=== PATIENT | male | born 1940 | race Caucasian/White ===

== ENCOUNTER 2023-11-06 13:18 | Emergency (ER) | payer MEDICARE, SELFPAY ==
--- NOTE | ~2023-11-06 | XR_ITS ---
EXAMINATION: XR chest 2V DATE: 11/06/2023 14:00 INDICATION: Shortness of breath. Palpitations. TECHNIQUE: Frontal and lateral views of the chest were obtained. COMPARISON: None. FINDINGS: A calcified left lung nodule is consistent with old granulomatous disease. No pleural effus ion or pneumothorax. The heart size is normal. IMPRESSION: 1. No acute cardiopulmonary disease. Reviewed, dictated and finalized at location A.
[2023-11-06 13:35] VITALS: BP 142/71; PULSE 60; RESP 12; TEMP 36.6; O2SAT 99
--- NOTE | 2023-11-06 13:39 | ECG_ITS ---
SEE SCANNED COPY FOR CONFIRMED REPORT MTDD
[2023-11-06 13:53] LABS: Basophils Absolute Auto 0.1 K/mm3 (0.0-0.1); Basophils Percent Auto 0.8 % (0.2-1.2); Eosinophils Absolute Auto 0.2 K/mm3 (0-0.3); Eosinophils Percent Auto 2.7 % (0-4.4); Hematocrit 39.1 % (42.0-52.0); Hemoglobin 12.9 g/dL (14.0-18.0); Immature Granulocyte Absolute 0.01 K/mm3 (0.00-0.031); Immature Granulocyte Percent A 0.2 % (0-0.5); Lymphocytes Absolute Auto 1.33 K/mm3 (0.9-3.2); Lymphocytes Percent Auto 21.3 % (18.3-44.2); Mean Corpuscular Hemoglobin 31.8 pg (26-34); Mean Corpuscular Volume 96.3 fl (80-100); Mean Platelet Volume 10.4 fl (7.4-10.4); Monocytes Absolute Auto 0.5 K/mm3 (0.1-0.6); Monocytes Percent Auto 8.5 % (2.6-8.5); Neutrophils Absolute Auto 4.2 K/mm3 (1.3-6.7); Neutrophils Percent Auto 66.5 % (45.5-73.1); Platelet Count Result 203 k/mm3 (150-375); Red Blood Count 4.06 M/mm3 (4.6-6.20); Red Cell Distribution Width 12.8 % (11.5-14.5); White Blood Count 6.3 K/mm3 (4.5-10.0)
--- NOTE | 2023-11-06 13:59 | ED.ARRPALP ---
HPI - Arrhythmia/Palpitations General Chief Complaint: Arrhythmia/Palpitations Stated Complaint: Low BP and slow HR Time Seen by Provider: 11/06/23 13:40 History of Present Illness HPI narrative: Patient is an 83-year-old male with history of hypertension, here with esophagus, bradycardia here with lightheadedness, slow heart rate, low blood pressure. Patient states that he was previously on amlodipine and well as HCTZ/losartan. Patient notes that up until 2 months ago he was still an avid runner. 2 months ago he began having episodes of light headedness, the first of which occurred while driving. he notes that his blood pressure has always been well controlled on his antihypertensives however over the last 2 months he has had lower blood pressure than normal with the lowest reading over the last couple of months being 92/42. He also notes that he has had occasional slower heart rates. He typically runs in the 50s and has had a heart rate in the 50s for many years. Over last couple of months he has noted some readings in the 30s and had 2 of these episodes this morning. He has stopped his amlodipine over the last 2 months due to these lower blood pressures but continues to take his hydrochlorothiazide/losartan. he previously followed with a director of labor relations when he lived in [place] prior to moving here, has been unable to establish with any physician since moving to this area 8 months ago. He notes that his last stress test was probably 2-3 years ago, was due for 1 prior to moving to [place]. He has had some exertional shortness of breath over the last couple of months as well as some midsternal burning similar to his prior Nixon's esophagus. This is not currently present. No cough, congestion, fever, chills. Related Data Allergies Allergy/AdvReac Type Severity Reaction Status Date / Time No Known Allergies Allergy Verified 11/06/23 13:40 Review of Systems Review of Systems: All systems reviewed & are unremarkable except as noted in HPI and below Exam Narrative: GENERAL: Well-appearing, well-nourished, and in no acute distress. HEAD: Normocephalic, atraumatic. EYES: PERRLA and EOMI. ENT: Nares clear. Mucous membranes moist. NECK: Supple. CHEST: Clear to auscultation. No respiratory distress. HEART: Regular rate and rhythm. Normal peripheral pulses. ABDOMEN: Soft, nontender, nondistended. EXTREMITIES: Normal range of motion. No edema. SKIN: Warm, dry, no rash. NEURO: No focal deficits. Alert and oriented x3. PSYCH: Normal mood and affect. Course Course Emergency Course: Chart review performed. Patient here with lightheadedness and palpitations for 2 months intermittently, constant for 1 week. Some SOB on exertion. Triage vitals normal. Patient seen evaluated, nontoxic appearing. He is currently complaining of mild lightheadedness, otherwise no current symptoms. Will do cardiac workup, workup for possible CHF, EKG shows bradycardia with occasional PVC. Patient states he has a known history of PVCs. Patient agreeable to workup and plan. Lab work reviewed. CBC unremarkable, hgb stable without concern for anemia causing symptoms. CMP shows potassium of 3.7, creatinine of 1.1, no baseline for comparison. Magnesium low at 1.5. Will optimize potassium and magnesium. Initial troponin negative. Repeat troponin normal. Patient reevaluated, feeling well. Discussed hospitalization versus outpatient follow-up with information given for both the on-call primary care doctor and cardiology office. Patient would prefer outpatient follow-up with primary care and Cardiology. Strict return precautions discussed. Patient to hold his blood pressure medications for the time being given low blood pressure readings at home and to keep a running list of his blood pressures to provide for his follow up appointments. The results of pertinent diagnostic studies and exam findings were discussed. The patient?s provisional diagnosis and plan of
[2023-11-06 14:03] LABS: Alanine Aminotransferase 19 U/L (6-50); Albumin Level 4.2 g/dL (3.5-5.1); Alkaline Phosphatase 48 U/L (38-126); Anion Gap 6 mmol/L (4-12); Aspartate Amino Transferase 28 U/L (17-59); Bilirubin,Total 0.6 mg/dL (0.2-1.3); Blood Urea Nitrogen 29 mg/dL (9-20); Calcium 10.1 mg/dL (8.4-10.2); Carbon Dioxide 26 mmol/L (22-30); Chloride 105 mmol/L (98-107); Estimated CRCL calculation 47 ml/min; Estimated Glomerular Filt Rate > 60; Glucose 119 mg/dL (65-110); Lipase 89 U/L (23-300); Magnesium 1.5 mg/dL (1.6-2.3); Potassium 3.7 mmol/L (3.4-5.0); Sodium 137 mmol/L (137-145)
[2023-11-06 14:15] LABS: Troponin I < 0.012 ng/mL (0.000-0.034)
[2023-11-06 14:30] VITALS: PULSE 60
[2023-11-06 14:41] LABS: Partial Thromboplastin Time 26.1 Seconds (22.3-36.8); Prothrombin Time 13.4 Seconds (11.1-14.7)
[2023-11-06 14:47] LABS: NT Pro B Type Natriuretic Pept 396 pg/mL (19.9-100)
[2023-11-06 14:55] LABS: D Dimer 0.28 ug/mL (<0.48)
[2023-11-06 15:14] VITALS: BP 128/71; PULSE 60; RESP 16; O2SAT 98
[2023-11-06] MEDS: MAGNESIUM SULF 2 GM/WATER 50ML 2 GM/50 ML BAG IVPB (15:16)
[2023-11-06] MEDS: POTASSIUM BICARBONATE 25 MEQ TABEF 50 MEQ PO (15:17)
--- NOTE | 2023-11-06 16:21 | ECG_ITS ---
SEE SCANNED COPY FOR CONFIRMED REPORT MTDD
--- NOTE | 2023-11-06 16:35 | ECG_ITS ---
SEE SCANNED COPY FOR CONFIRMED REPORT MTDD
[2023-11-06 17:08] LABS: Troponin I < 0.012 ng/mL (0.000-0.034)
[2023-11-06 18:02] VITALS: BP 136/51; PULSE 52; RESP 14; O2SAT 99
== END 2023-11-06 18:04 | disposition home or self-care (01) ==
PROVIDERS: Emergency Medicine; Emergency Provider Student in an Organized Health Care Education/Training Program; PCP Family Medicine
DX: R00.2 Palpitations (principal); R06.02 Shortness of breath; I10 Essential (primary) hypertension; R00.1 Bradycardia, unspecified; I44.0 Atrioventricular block, first degree
CPT/HCPCS: 36415; 71046; 80053; 83690; 83735; 83880; 84484; 85025; 85380; 85610; 85730; 93005; 96365; 96366; 99284; A9270; J3475

== ENCOUNTER 2023-11-29 11:10 | Outpatient (CLI) | payer MEDICARE, SELFPAY ==
[2023-11-29 07:59] LABS: Hematocrit 43.2 % (42.0-52.0); Hemoglobin 14.1 g/dL (14.0-18.0); Mean Corpuscular HGB Conc 32.6 g/dl (32-36); Mean Corpuscular Hemoglobin 31.7 pg (26-34); Mean Corpuscular Volume 97.1 fl (80-100); Mean Platelet Volume 10.8 fl (7.4-10.4); Platelet Count Result 247 k/mm3 (150-375); Red Blood Count 4.45 M/mm3 (4.6-6.20); Red Cell Distribution Width 12.7 % (11.5-14.5); White Blood Count 4.9 K/mm3 (4.5-10.0)
[2023-11-29 08:44] LABS: Alanine Aminotransferase 17 U/L (6-50); Albumin Level 4.3 g/dL (3.5-5.1); Alkaline Phosphatase 48 U/L (38-126); Anion Gap 5 mmol/L (4-12); Aspartate Amino Transferase 27 U/L (17-59); Bilirubin,Total 0.9 mg/dL (0.2-1.3); Blood Urea Nitrogen 23 mg/dL (9-20); Carbon Dioxide 31 mmol/L (22-30); Chloride 103 mmol/L (98-107); Cholesterol 148 mg/dL (0-200); Estimated Glomerular Filt Rate > 60; Glucose 102 mg/dL (65-110); HDL Direct 54 mg/dL; Magnesium 1.9 mg/dL (1.6-2.3); Potassium 3.8 mmol/L (3.4-5.0); Sodium 139 mmol/L (137-145); Triglycerides 72 mg/dL (<150)
[2023-11-29 08:56] LABS: LDL Cholesterol Direct 77 mg/dL
[2023-11-29 09:15] LABS: Prostate Specific Antigen < 0.1 ng/mL (< OR = 4.0)
== END 2023-11-29 11:11 | disposition home or self-care (01) ==
PROVIDERS: PCP Family Medicine; Visit Provider Family Medicine
DX: E83.42 Hypomagnesemia (principal); C61 Malignant neoplasm of prostate; I10 Essential (primary) hypertension; E78.2 Mixed hyperlipidemia; Z13.220 Encounter for screening for lipoid disorders
CPT/HCPCS: 36415; 80048; 80061; 80076; 83735; 84153; 84443; 85027

== ENCOUNTER 2023-12-10 11:33 | Day surgery (SDC) | payer MEDICARE, SELFPAY ==
[2023-11-29 09:27] VITALS: BMI 21.9
[2023-12-10 12:43] VITALS: BP 133/69; PULSE 55; RESP 18; TEMP 36.7; O2SAT 99; BMI 21.9
--- NOTE | 2023-12-10 12:50 | PM.HPGS ---
History of Present Illness History of Present Illness Consent: Risks, benefits, and alternatives have been discussed and questions answered. Patient agrees to proceed with procedure. 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 Review of Systems Review of Systems: All systems reviewed & are unremarkable except as noted in HPI and below PMFSH Past Medical History Medical History Nixon esophagus Bradycardia Essential hypertension Hypomagnesemia Mixed hyperlipidemia Surgical History Surgical History Prostate cancer Family History Family History Sibling Diabetes mellitus Hypertension Social History Social History Smoking status: Never smoker Alcohol intake: current Alcohol use details: 3 per month Substance use: never Substance use type: does not use Do You Feel Safe in your Home?: Yes Lack of Transportation: No Lack of Food: Never True Current Housing: I Have Housing Concerned About Future Housing: No Difficulty Paying Gas/Electric Bills: No Difficulty Paying for Meds: No Currently Unemployed: No Difficulty w/ Childcare or Family Care: No Meds Home Medications and Allergies Home Medications Medication Instructions Recorded Confirmed Type candesartan 32 1 tablet PO DAILY 11/26/23 12/10/23 History mg-hydrochlorothiazide 12.5 mg tablet omeprazole 20 mg capsule,delayed 20 mg PO DAILY 11/26/23 12/10/23 History release rosuvastatin 10 mg tablet (Crestor) 10 mg PO DAILY 11/26/23 12/10/23 History Magnesium Complex 1 tab-cap PO DIRECTED 12/03/23 12/10/23 History amlodipine 5 mg tablet 5 mg PO DAILY 12/03/23 12/10/23 History coenzyme Q10 1 tab-cap PO DIRECTED 12/03/23 12/10/23 History multivitamin 1 tablet PO DAILY 12/03/23 12/10/23 History Allergies Allergy/AdvReac Type Severity Reaction Status Date / Time No Known Allergies Allergy Verified 12/10/23 12:37 Vital Signs Vital Signs - 24 hr 12/10/23 12:43 Temperature 36.7 C Pulse Rate 55 L Respiratory Rate 18 Blood Pressure 133/69 Pulse Oximetry 99 Oxygen Delivery Room Air Exam Const: General: alert Orientation/consciousness: patient oriented x3 Resp: Auscultation: clear to auscultation bilaterally Cardio: Rhythm: regular rhythm GI: GI Palp: Yes Soft to palpation and No Tenderness to palpation present (GI) Neuro: General: patient oriented x3 Assessment and Plan Assessment and plan (1) Nixon esophagus: Qualifiers: Nixon's esophagus type: without dysplasia Qualified Code(s): K22.70 - Nixon's esophagus without dysplasia Code(s): K22.70 - Nixon's esophagus without dysplasia Status: Acute Assessment and Plan: EGD with possible biopsy or dilatation or cautery.
[2023-12-10] MEDS: LACTATED RINGERS 1,000 ML 150 ML IV CONT (12:55)
--- NOTE | 2023-12-10 13:04 | WPDANESEPPF ---
Anes - Initial Pre Proc Eval Procedure: Operation Date: 12/10/23 13:30 Proposed Procedures p Esophagogastroduodenoscopy - Donis Alva MD Date/Time: 12/10/23 13:04 Surgeon: Donis Alva MD Pre Op Diagnosis: Nixon's Esophagus without Dysplasia Patient Data Age: 83 Gender: M Height: 1.78 m Weight: 69.35 kg Last Vital Signs Temp 36.7 C 12/10/23 12:43 Pulse 55 L 12/10/23 12:43 Resp 18 12/10/23 12:43 BP 133/69 12/10/23 12:43 Pulse Ox 99 12/10/23 12:43 O2 Del Method Room Air 12/10/23 12:43 Allergies Allergy/AdvReac Type Severity Reaction Status Date / Time No Known Allergies Allergy Verified 12/10/23 12:37 Home Medications Medication Instructions Recorded Confirmed Type candesartan 32 1 tablet PO DAILY 11/26/23 12/10/23 History mg-hydrochlorothiazide 12.5 mg tablet omeprazole 20 mg capsule,delayed 20 mg PO DAILY 11/26/23 12/10/23 History release rosuvastatin 10 mg tablet (Crestor) 10 mg PO DAILY 11/26/23 12/10/23 History Magnesium Complex 1 tab-cap PO DIRECTED 12/03/23 12/10/23 History amlodipine 5 mg tablet 5 mg PO DAILY 12/03/23 12/10/23 History coenzyme Q10 1 tab-cap PO DIRECTED 12/03/23 12/10/23 History multivitamin 1 tablet PO DAILY 12/03/23 12/10/23 History Patient hx anesthesia problems: none Family hx anesthesia problems: none Results Review: All pre-operative results and documents have been reviewed as part of the pre-operative evaluation. [facility] Past Medical History Medical History Nixon esophagus Bradycardia Essential hypertension Hypomagnesemia Mixed hyperlipidemia Surgical History Surgical History Prostate cancer Family History Family History Sibling Diabetes mellitus Hypertension Social History Social History Smoking status: Never smoker Alcohol intake: current Alcohol use details: 3 per month Substance use: never Substance use type: does not use Do You Feel Safe in your Home?: Yes Lack of Transportation: No Lack of Food: Never True Current Housing: I Have Housing Concerned About Future Housing: No Difficulty Paying Gas/Electric Bills: No Difficulty Paying for Meds: No Currently Unemployed: No Difficulty w/ Childcare or Family Care: No Anes - Eval Final PreProcedure Day of Procedure 12/10/23 13:04 Patient weight: normal Heart: regular rate and rhythm Lungs: clear to auscultation Airway: Mallampati scale class II Neurological: alert and oriented Last oral intake: >/= 8 hours ASA classification: III Emergent: no Anesthetic plan: proceed Anesthesia type and monitoring: general GIVS and standard monitoring Results Review: All pre-operative results and documents have been reviewed as part of the pre-operative evaluation. Informed Consent: The patient's anesthetic plan and its attendant risks and benefits were discussed with the patient/family/POA. Questions were solicited and answers provided to the satisfaction of the patient/family/POA.
[2023-12-10 13:30] VITALS: BP 122/60; PULSE 54; RESP 15; O2SAT 97
--- NOTE | 2023-12-10 13:39 | WPDANESPN ---
Anes - Prog Note Post-Op Date/Time: 12/10/23 13:39 Cardiovascular status: normal Respiratory status: normal Airway patency: baseline Mental status: baseline Post-Op hydration status: normal Vital Signs: Last Vital Signs Temp 36.7 C 12/10/23 12:43 Pulse 54 L 12/10/23 13:30 Resp 15 12/10/23 13:30 BP 122/60 12/10/23 13:30 Pulse Ox 97 12/10/23 13:30 O2 Del Method Room Air 12/10/23 13:30 Pain Score (VAS): 0/10 I/O: Intake & Output 12/09/23 12/10/23 12/10/23 23:59 07:59 15:59 Intake Total 200 Balance 200 Patient Feedback: Patient satisfied with anesthetic care.
[2023-12-10 13:40] VITALS: BP 123/32; PULSE 52; RESP 16; O2SAT 96
[2023-12-10 13:50] VITALS: BP 114/63; PULSE 52; RESP 18; O2SAT 98
== END 2023-12-10 13:56 | disposition home or self-care (01) ==
PROVIDERS: PCP Family Medicine; Visit Provider Internal Medicine Gastroenterology
PROC: 0DJ08ZZ Inspection of Upper Intestinal Tract, Via Natural or Artificial Opening Endoscopic (ICD-10-PCS; CPT 43235; principal; 2023-12-10 13:30)
DX: K22.70 Barrett's esophagus without dysplasia (principal)
CPT/HCPCS: 43239

== ENCOUNTER 2023-12-10 11:48 | Outpatient (NON) | payer MEDICARE, SELFPAY | END 2023-12-10 11:49 | disposition home or self-care (01) | LOC: ANHLAB 12-11 11:51 | PROVIDERS: PCP Family Medicine; Visit Provider Internal Medicine Gastroenterology | DX: K22.70 Barrett's esophagus without dysplasia (principal) | CPT/HCPCS: 88305 ==

== ENCOUNTER 2024-01-28 08:53 | Outpatient (CLI) | payer MEDICARE, SELFPAY ==
--- NOTE | 2024-01-28 09:06 | ECHO_ITS ---
Patient Info Name: Joe Alfaro Age: 83 years : 1940 Gender: Male Ht: 70 in Wt: 150 lbs BSA: 1.83 m2 HR: 48 bpm BP: 130 / 66 mmHg Technical Quality: Good Exam Date: 01/28/2024 9:16 AM Exam Location: Echo Lab Patient Status: Outpatient Admit Date: 01/28/2024 Staff Ordering Physician: Yandel Torres MD Manager Custom: Judit Jim RDCS Attending Provider: Yandel Torres MD Referring Physician: Brian FIERRO; Exam Type: CA echo doppler color flow Study Info Indications R00.1 - Bradycardia, unspecified Complete two-dimensional, color flow and Doppler transthoracic echocardiogram is performed. Strain analysis performed. Summary 1. Complete two-dimensional, color flow and Doppler transthoracic echocardiogram is performed. 2. Left ventricular chamber dimension is normal. 3. Left ventricular systolic function is normal, estimated at 55-60%. 4. The left ventricular diastolic function is grade I diastolic dysfunction. 5. Global longitudinal strain is slightly abnormal at -16.6%. 6. Left atrial chamber dimension is mildly enlarged. 7. Right atrial chamber dimension is mildly enlarged. 8. There is mild aortic valve sclerosis. 9. There is mild mitral valve regurgitation. 10. There is mild tricuspid valve regurgitation. 11. No pulmonary hypertension, estimated pulmonary arterial systolic pressure is 39 mmHg. Left Ventricle Global longitudinal strain is slightly abnormal at -16.6%. Tissue doppler is not performed. Left ventricular chamber dimension is normal. Left ventricular systolic function is normal, estimated at 55-60%. The left ventricular diastolic function is grade I diastolic dysfunction. Right Ventricle Right ventricular systolic function is normal and with normal TAPSE 2.6 cm. Right ventricular chamber dimension is normal. Left Atria Left atrial chamber dimension is mildly enlarged. Right Atria Right atrial chamber dimension is mildly enlarged. Aortic Valve The aortic valve is trileaflet. There is mild aortic valve sclerosis. There is no aortic valve stenosis. There is no aortic valve regurgitation. Pulmonic Valve There is no pulmonic regurgitation. Mitral Valve There is no mitral valve stenosis. There is mild mitral valve regurgitation. Tricuspid Valve There is mild tricuspid valve regurgitation. No pulmonary hypertension, estimated pulmonary arterial systolic pressure is 39 mmHg. Pericardium/Pleural There is no pericardial effusion. Inferior Vena Cava Normal inferior vena cava with >50% collapse upon inspiration consistent with normal right atrial pressure, 5 mmHg. Aorta The aortic root size at the sinus of Valsalva is normal. Left Ventricular Outflow Tract Name Value Normal LVOT 2D LVOT Diameter 2.0 cm LVOT Doppler LVOT Peak Gradient 4 mmHg LVOT Mean Gradient 2 mmHg LVOT VTI 22 cm LVOT VTI/AV VTI Ratio 0.9 LVOT Stroke Volume 66 ml LVOT CO 3.0 l/min LVOT CI 1.6 l/min/m2 Pulmonic Valve
== END 2024-01-28 08:54 | disposition home or self-care (01) ==
PROVIDERS: PCP Family Medicine; Visit Provider Family Medicine
DX: E83.42 Hypomagnesemia (principal); I10 Essential (primary) hypertension; R00.1 Bradycardia, unspecified; I34.0 Nonrheumatic mitral (valve) insufficiency; I35.1 Nonrheumatic aortic (valve) insufficiency; I36.1 Nonrheumatic tricuspid (valve) insufficiency
CPT/HCPCS: 93306

== ENCOUNTER 2024-04-30 09:49 | Outpatient (CLI) | payer MEDICARE, SELFPAY ==
--- NOTE | ~2024-04-30 | XR_ITS ---
EXAMINATION: XR hip BI wo pelvis DATE: 04/30/2024 10:14 INDICATION: Bilateral primary osteoarthritis of hip. TECHNIQUE: 2 views of right hip and 2 views of left hip were obtained. COMPARISON: None. FINDINGS: Alignment is normal. No fracture. There is severe osteoarthritis of the hips. Osteitis pubi s is noted. There are surgical clips in the pelvis. IMPRESSION: 1. Severe osteoarthritis of the hips. Reviewed, dictated and finalized at location B.
== END 2024-04-30 09:50 | disposition home or self-care (01) ==
PROVIDERS: PCP Family Medicine; Visit Provider Family Medicine
DX: M16.0 Bilateral primary osteoarthritis of hip (principal)
CPT/HCPCS: 73521

== ENCOUNTER 2024-11-13 09:35 | Outpatient (CLI) | payer MEDICARE, SELFPAY ==
--- NOTE | ~2024-11-13 | CT_ITS ---
Non-contrast CT scan of the Abdomen and Pelvis Clinical indication: Incisional hernia Technique: 2.5 mm axial scans were obtained through the abdomen and pelvis without intravenous or or al contrast. Dose reduction technique was used on this scan by utilizing automated exposure control a nd iterative reconstruction technique. The dose-length product (DLP) was 408.32 mGy-cm. Findings: Images through the lung bases reveal 4 mm left lower lobe pulmonary nodule (axial image 6) .. There is no evidence of renal or ureteral calculi. The kidneys and the ureters are nondilated. The liver, spleen, pancreas, gallbladder, and adrenals appear normal. There are atherosclerotic calci fications of the aorta. . There is no evidence of bowel obstruction. Images through the pelvis were performed. There is no evidence of ascites or lymphadenopathy. Urinary bladder unremarkable. No pelvic mass seen. Impression: No hernia seen. 4 mm left lower lobe pulmonary nodule. Consider one-year follow-up exam for a high-risk patient. Reviewed, dictated and finalized at [facility]. Impression: No hernia seen. 4 mm left lower lobe pulmonary nodule. Consider one-year follow-up exam for a h igh-risk patient.
== END 2024-11-13 09:36 | disposition home or self-care (01) ==
LOC: MICIMG 09:36
PROVIDERS: PCP Family Medicine; Visit Provider Surgery
DX: R91.1 Solitary pulmonary nodule (principal); K43.2 Incisional hernia without obstruction or gangrene
CPT/HCPCS: 74176

== ENCOUNTER 2025-03-31 13:53 | Emergency (ER) | payer MEDICARE, SELFPAY ==
[2025-03-31] VITALS (9 sets, daily range): BP systolic 130–157; BP diastolic 60–79; PULSE 33–64; RESP 13–18; TEMP 36.4–36.7; O2SAT 96–99
--- OUTSIDE RECORDS SUMMARY | 2025-03-31 14:00 | XMS_ITS | Clinical Summary ---
Author Organization [facility] [address] Address [address] [place] [id number] Care Team Providers Care Operations Support Coordinator Name Role Phone Yandel Torres MD Primary Care Provider Allergies Active Allergy Reactions Criticality Noted Date Comments Lisinopril Cough Low 03/06/2023 Medications amLODIPine (NORVASC) 5 mg tablet 1 tablet (5 mg total) 3 Active rosuvastatin (CRESTOR) 20 mg tablet Take 1 tablet (20 mg total) by mouth daily 2 Active omeprazole (PriLOSEC) 20 mg capsule Take 1 capsule (20 mg total) by mouth daily Active hydroCHLOROthiazid e (HYDRODIURIL) 25 mg tablet Take 0.5 tablets (12.5 mg total) by mouth 5 Active fluticasone propionate (FLONASE) 50 mcg/actuation nasal spray Administer into affected nostril(s) 5 Active candesartan (ATACAND) 32 mg tablet Take 1 tablet (32 mg total) by mouth 5 Active olopatadine (PATANOL) 0.1 % ophthalmic solutionIndication s:Allergic Conjunctivitis Administer 1 drop into the left eye 2 (two) times a day 5 mL 5 Active Active Problems Problem Noted Date Diagnosed Date Diarrhea, unspecified 10/20/2024 Exposure to potentially hazardous substance 09/30 Overview (10/20/2024): Oct 04, 2023 Entered By: PEDRITO MORAN Comment: Entered automatically through [facility] Problem List documentation program Diastolic dysfunction 04/30/2024 Adjustment disorder with mixed anxiety and depre ssed mood 08/23/2023 Adjustment disorder with mixed anxiety and depre ssed mood 08/23/2023 Nixon's esophagus 08/23/2023 Overview (08/23/2023): November 28, 2016 Entered By: BON LYNN DO Comment: repeat december 2016 prvateJun 2018 Entered By: BON LYNN DO Comment: repated 2018 no esophagitis repeat in 3yrs Bilateral pseudophakia 08/23/2023 Carcinoma of prostate 08/23/2023 Depression, unspecified 08/23/2023 Double vision with both eyes open 08/23/2023 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 Gastro-esophageal reflux disease without esophag itis 08/23/2023 Hyperlipidemia, unspecified 08/23/2023 Major depressive disorder, recurrent, moderate 0 08/23/2023 Moderate major depression 08/23/2023 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 Hypertensive disorder 10/30/2022 Intestinal metaplasia of gastric mucosa 10/31/19 Surgical History Surgery Date Site/Laterality Comments PROSTATE SURGERY Medical History Medical History Date Comments Hypertension Hyperlipidemia Cancer (HCC) Family History Medical History Relation Name Comments Blood Clot Father Relation Name Status Comments Father Mother Social History Tobacco Use Types Packs/Day Years Used Date Smoking Tobacco: Never Smokeless Tobacco: Never Tobacco Cessation:Counseling Given: Not Answered Sex and Gender Information Value Date Recorded Sex Assigned at Not on file Legal 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 Gender Identity Not on file Sexual Orientation Not on file Obstetrics History Last Filed Vital Signs Vital Sign Reading Time Taken Comments Blood Pressure 130/72 10/20/2024 8:56 AM CDT Pulse 39 10/20/2024 9:02 AM CDT Temperature 37 C (98.6 F) 10/20/2024 8:56 AM CDT Respiratory Rate 12 10/20/2024 8:56 AM CDT Oxygen Saturation 98% 10/20/2024 8:56 AM CDT Inhaled Oxygen Concentration - - Weight 71.2 kg (157 lb) 10/20/2024 8:56 AM CDT Height 177.8 cm (5' 10) 10/20/2024 8:56 AM CDT Body Mass Index 22.53 10/20/2024 8:56 AM CDT Plan of Treatment Health Maintenance Due Date Last Done Comments Depression Screening 1940 Fall Risk Assessment 1940 Hepatitis B Screening 02[birth year]17[birth year]1960 Well Visit 65+ 2007 Influenza Vaccine (#1) 2025 4, 04/01/2023, 01/29/2023, Additional history exists DTaP/Tdap/Td Vaccine (2 - Td or Tdap) 05/03/2025 05/03/2015, 06/22/2005 Zoster Vaccine Completed 05/22/2019, 11/30, 05/04/2014 Pneumococcal vaccine 65+ Completed 020, 11/01/2015, 11/09/2014, Additional history exists Insurance MEDICARE [facility] Address: [address] [address] [place] [address] [facility] Care Teams Operations Support Coordinator Relationship Specialty Start Date End Date Yandel Torres MD [address] [place] [address] PCP - General Family Medicine 04/30/24
--- NOTE | 2025-03-31 14:01 | ECG_ITS ---
Test Date: 2025-03-31 14:04:04 Measurements Intervals Panther Rate: 72 P: 79 MD: 273 QRS: 33 QRSD: 101 T: 58 QT: 393 QTc: 431 Interpretive Statements SINUS RHYTHM WITH FIRST DEGREE AV BLOCK WITH FREQUENT VENTRICULAR PREMATURE COMPLEXES IN A BIGEMINAL PATTERN INCOMPLETE RIGHT BUNDLE BRANCH BLOCK BORDERLINE ST ABNORMALITY- ANTEROLATERAL LEADS BASELINE ARTIFACT- I, II, AVR, AVL, AVF ABNORMAL ECG No previous ECG available for comparison Electronically Signed On 03-31-2025 15:08:58 CDT by Cesar Giang D.O.
--- NOTE | 2025-03-31 14:34 | PC.NURSE ---
patient denies any history of afib, or heart block. 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
--- NOTE | 2025-03-31 14:53 | ED_ITS ---
HPI - General Adult General Chief complaint: Arrhythmia/Palpitations Stated complaint: Low HR-30's-Low BP 86/48 Time Seen by Provider: 03/31/25 14:28 History of Present Illness HPI narrative: This is an 85-year-old male presenting for low heart rate. Patient says that he checked his heart rate yesterday and it was in the 30s via manual palpation. He attempted to take his blood pressure with and home blood pressure cuff and it did not read. He felt well during this time with no symptoms. He came to the ED to be evaluated today due to the low heart rate. He is not on any beta- blockers. He ran marathons for 50 years and has always had a low heart rate. He has been seen by single pass soil stabilizer operator for this in the past and per the patietn the said he may need a pacemaker some day. Patient does not have any active chest pain and has not had any chest pain during these events. No shortness of breath. No syncope. No recent illness. No swelling of his legs. Related Data Home Medications ?Medication ?Instructions ?Recorded ?Confirmed ?Last Taken ?Type candesartan 32 1 tablet PO DAILY 11/26/23 0 11/10/24 12/09/23 History mg-hydrochlorothiazide 12.5 mg tablet omeprazole 20 mg capsule,delayed 20 mg PO DAILY 11/10/24 12/09/23 History release rosuvastatin 10 mg tablet (Crestor) 10 mg PO DAILY 11/10/24 12/09/23 History amlodipine 5 mg tablet 5 mg PO DAILY 12/03/2311/1012/09/23 History multivitamin 1 tablet PO DAILY 12/03/23 0 11/10/24 12/06/23 History coenzyme Q10 75 mg capsule (Ultra 75 mg PO DAILY 04/2811/10/24 Unknown History CoQ10) magnesium aspart,citrate,oxide mg PO 04/28/24 11/10/24 Unknown History Allergies Allergy/AdvReac Type Severity Reaction Status Date / Time No Known Allergies Allergy Verified 03/31/25 14:01 [facility] Past Medical History Medical History Bradycardia Essential hypertension Mixed hyperlipidemia Hypomagnesemia Nixon esophagus Surgical History Surgical History Prostate cancer Family History Family History Sibling Diabetes mellitus Hypertension Social History Social History (Updated 11/10/24 @ 15:36 by MARIA D Singh) Smoking status: Never smoker Alcohol intake: current Alcohol use details: 3 per month Substance use: never Substance use type: does not use Do You Feel Safe in your Home?: Yes Lack of Transportation: No Lack of Food: Never True Current Housing: I Have Housing Concerned About Future Housing: No Difficulty Paying Gas/Electric Bills: No Difficulty Paying for Meds: No Currently Unemployed: YES Education: Bachelor's Degree Difficulty w/ Childcare or Family Care: No Exam 2 Narrative: APPEARANCE: No apparent distress. Patient is in excellent physical condition Head: atraumatic. EYES: EOMI, NOSE: Atraumatic NECK: Trachea midline RESPIRATORY: No increased rate of breathing clear to auscultation CARDIOVASCULAR: Bradycardic, no peripheral edema ABDOMINAL: Non-distended soft nontender no guarding or rebound MUSCULOSKELETAl: No obvious deformities NEURO: Alert. Moving 4/4 extremities SKIN:: Warm, dry. Normal color PSYCHIATRIC: Normal affect Course Vital Signs Vital signs: Vital Signs Temperature 97.6 F 03/31/25 14:02 Pulse Rate 64 03/31/25 14:02 Respiratory Rate 16 03/31/25 14:02 Blood Pressure 157/65 H 03/31/25 14:02 Pulse Oximetry 99 03/31/25 14:02 Oxygen Delivery Room Air 03/31/25 14:02 Temperature 97.6 F 03/31/25 14:02 Pulse Rate 54 L 03/31/25 14:59 Respiratory Rate 13 03/31/25 14:58 Blood Pressure 140/74 03/31/25 14:58 Pulse Oximetry 98 03/31/25 15:02 Oxygen Delivery Room Air 03/31/25 15:02 Medical Decision Making [facility] Narrative Medical decision making narrative: -Course: 85-year-old male presenting with concerns about his heart rate. EKG shows a rate of 72 with bigeminy. When the patient is not in bigeminy is heart rate is in the 50s and normal sinus rhythm which is a normal heart rate for this patient due to his athletic conditioning. Blood pressures are stable. Patient is asymptomatic. Screening lab work troponin ordered which were negative. Patient will be discharged with cardiology follow-up. Given return precautions for chest pain difficulty breathing lightheadedness or syncopal symptoms. -DDX includes but is not limited to: Atrial bigeminy, sinus bradycardia, third- degree heart block -Co-morbidities complicating care: Hypertension Independent EKG interpretation: Rhythm [sinus], Rate [72], [place] -[normal], [place] -[normal], QRS [narrow], QTC [normal], T waves -[negative for concerning inversions], ST Segments - [Negative for concerning elevations] Final interpretations: sinus rhythm w/ bigemini Vital Signs Vital Signs: Vital Signs Temperature 97.6 F 03/31/25 14:02 Pulse Rate 64 03/31/25 14:02 Respiratory Rate 16 03/31/25 14:02 Blood Pressure 157/65 H 03/31/25 14:02 Pulse Oximetry 99 03/31/25 14:02 Oxygen Delivery Room Air 03/31/25 14:02 Temperature 97.6 F 03/31/25 14:02 Pulse Rate 54 L 03/31/25 14:59 Respiratory Rate 13 03/31/25 14:58 Blood Pressure 140/74 03/31/25 14:58 Pulse Oximetry 98 03/31/25 15:02 Oxygen Delivery Room Air 03/31/25 15:02 Lab Data 03/31/25 14:58 03/31/25 14:58 Labs: Lab Results 03/31/25 Range/Units 14:58 WBC 5.8 (4.5-10.0) K/mm3 RBC 3.99 L (4.6-6.20) M/mm3 Hgb 12.6 L (14.0-18.0) g/dL Hct 38.2 L (42.0-52.0) % MCV 95.7 (80-100) fl MCH 31.6 (26-34) pg MCHC 33.0 (32-36) g/dl RDW 12.6 (11.5-14.5) % Plt Count 234 (150-375) k/mm3 MPV 9.7 (7.4-10.4) fl Immature Gran % (Auto) 0.3 (0-0.5) % Neut % (Auto) 61.8 (45.5-73.1) % Lymph % (Auto) 24.4 (18.3-44.2) % [place] % (Auto) 8.8 H (2.6-8.5) % Eos % (Auto) 4.0 (0-4.4) % Baso % (Auto) 0.7 (0.2-1.2) % Lymph # (Auto) 1.42 (0.9-3.2) K/mm3 [place] # (Auto) 0.5 (0.1-0.6) K/mm3 Eos # (Auto) 0.2 (0-0.3) K/mm3 Baso # (Auto) 0.0 (0.0-0.1) K/mm3 Abs Immat Gran (auto) 0.02 (0.00-0.031) K/mm3 Absolute Neuts (auto) 3.6 (1.3-6.7) K/mm3 Absolute Nucleated RBC 0.000 (0.0-0.012) K/mm3 Nucleated RBC % 0.0 (0.0-0.2) % Sodium 137 (137-145) mmol/L Potassium 3.6 (3.4-5.0) mmol/L Chloride 103 (98-107) mmol/L Carbon Dioxide 28 (22-30) mmol/L Anion Gap 6 (4-12) mmol/L BUN 20 (9-20) mg/dL Creatinine 0.89 (0.7-1.3) mg/dL Estim Creat Clear Calc 54 ml/min Estimated GFR > 60 (59 - ) Glucose 107 (65-110) mg/dL Calcium 9.6 (8.4-10.2) mg/dL Total Bilirubin 0.3 (0.2-1.3) mg/dL AST 28 (17-59) U/L ALT 22 (6-50) U/L Alkaline Phosphatase 43 (38-126) U/L Troponin I < 0.012 (0.000-0.034) ng/mL Total Protein 6.9 (6.3-8.2) g/dL Albumin 4.0 (3.5-5.1) g/dL Discharge Plan Discharge Clinical Impression: Bigeminal rhythm Patient Disposition: Home Condition: Stable Instructions: Antibiotic Form, Bradycardia (ED) Additional Instructions: You were seen emergency department for bradycardia. Please follow-up with your single pass soil stabilizer operator in the next 3-5 days for further management. If you develop chest pain shortness of breath cough feel lightheaded or like your going to faint please return to the emergency department immediately. Patient Language: Faroese Prescriptions: No Action rosuvastatin [Crestor] 10 mg tablet 10 mg PO DAILY omeprazole 20 mg capsule,delayed release(DR/EC) 20 mg PO DAILY candesartan-hydrochlorothiazid 32-12.5 mg tablet 1 tablet PO DAILY azelastine 0.05 % drops 1 drp LEFT EYE BID Qty: 6 0RF Ultra CoQ10 75 mg capsule 75 mg PO DAILY magnesium aspart,citrate,oxide 400 mg magnesium capsule PO alprazolam 0.5 mg tablet 0.5 mg PO BID PRN (Reason: anxiety) Qty: 60 0RF multivitamin Tablet 1 tablet PO DAILY amlodipine 5 mg Tablet 5 mg PO DAILY Follow-up/Referrals: Yandel Torres MD [Primary Care Provider, Family Practice]
[2025-03-31 15:04] LABS: Hematocrit 38.2 % (42.0-52.0); Hemoglobin 12.6 g/dL (14.0-18.0); Immature Granulocyte Percent A 0.3 % (0-0.5); Lymphocytes Absolute Auto 1.42 K/mm3 (0.9-3.2); Mean Corpuscular HGB Conc 33.0 g/dl (32-36); Mean Corpuscular Hemoglobin 31.6 pg (26-34); Mean Corpuscular Volume 95.7 fl (80-100); Nucleated Red Blood Cells Absolute Auto 0.000 K/mm3 (0.0-0.012); Nucleated Red Blood Cells Perc 0.0 % (0.0-0.2); Platelet Count Result 234 k/mm3 (150-375); Red Blood Count 3.99 M/mm3 (4.6-6.20); White Blood Count 5.8 K/mm3 (4.5-10.0)
[2025-03-31 15:17] LABS: Alanine Aminotransferase 22 U/L (6-50); Albumin Level 4.0 g/dL (3.5-5.1); Alkaline Phosphatase 43 U/L (38-126); Anion Gap 6 mmol/L (4-12); Aspartate Amino Transferase 28 U/L (17-59); Bilirubin,Total 0.3 mg/dL (0.2-1.3); Blood Urea Nitrogen 20 mg/dL (9-20); Calcium 9.6 mg/dL (8.4-10.2); Carbon Dioxide 28 mmol/L (22-30); Chloride 103 mmol/L (98-107); Estimated CRCL calculation 54 ml/min; Estimated Glomerular Filt Rate > 60; Glucose 107 mg/dL (65-110); Potassium 3.6 mmol/L (3.4-5.0); Sodium 137 mmol/L (137-145); Total Protein 6.9 g/dL (6.3-8.2)
--- NOTE | 2025-03-31 15:20 | PC.NURSE ---
Report given to Shari BRONSON, all questions answered.
[2025-03-31 15:28] LABS: Troponin I < 0.012 ng/mL (0.000-0.034)
== END 2025-03-31 16:35 | disposition home or self-care (01) ==
LOC: ANHED 16:15
PROVIDERS: Emergency Provider Emergency Medicine; PCP Family Medicine
DX: R00.8 Other abnormalities of heart beat (principal); I10 Essential (primary) hypertension; E78.2 Mixed hyperlipidemia; K22.70 Barrett's esophagus without dysplasia; Z85.46 Personal history of malignant neoplasm of prostate; Z79.899 Other long term (current) drug therapy; I44.0 Atrioventricular block, first degree; I49.3 Ventricular premature depolarization; I45.10 Unspecified right bundle-branch block; R94.31 Abnormal electrocardiogram [ECG] [EKG]
CPT/HCPCS: 36415; 80053; 84484; 85025; 93005; 99284

== ENCOUNTER 2025-04-01 12:07 | Outpatient (CLI) | payer MEDICARE, SELFPAY ==
[2025-04-01 12:34] LABS: Hematocrit 41.8 % (42.0-52.0); Hemoglobin 13.8 g/dL (14.0-18.0)
[2025-04-01 12:53] LABS: Iron 70 ug/dL (49-181)
[2025-04-01 13:03] LABS: Percent Iron Saturation 21 % (20-50)
[2025-04-01 13:35] LABS: Ferritin 69.80 ng/mL (11.1-264)
== END 2025-04-01 12:08 | disposition home or self-care (01) ==
LOC: ANHLAB 12:08
PROVIDERS: PCP Family Medicine; Visit Provider Family Medicine
DX: D64.9 Anemia, unspecified (principal)
CPT/HCPCS: 36415; 82728; 83540; 83550; 85014; 85018

== ENCOUNTER 2025-04-15 12:51 | Outpatient (CLI) | payer MEDICARE, SELFPAY ==
--- OUTSIDE RECORDS SUMMARY | 2025-04-15 14:35 | XMS_ITS | Clinical Summary ---
Author Organization [facility] [place] [address] Address [address] [place] [id number] Care Team Providers Care Gasoline Pump Installer Name Role Phone Yandel Torres MD Primary [...] on file Legal Sex Male 5:[employer] Gender Identity Not on file Sexual Orientation [...] 11/01/2015, 11/09/2014, Additional history exists Insurance [facility]ICARE [facility] Care Teams Gasoline Pump Installer Relationship Specialty Start Date End Date Yandel Torres MD [address] [place] [address] PCP - General Family Medicine 04/30/24
--- NOTE | 2025-04-28 07:50 | WPDHOLTEREM ---
Holter/Event Monitor Holter/Event Monitor Date of procedure: 04/15/25 Holter/Event Procedure: 3-7 Day Holter Monitor Indications: Bradycardia Conclusion: 1. 3 days holter monitor on 04/15/25. 2. Predominant rhythm is sinus rhythm. HR range 38-156 bpm; average HR 62 bpm. HR at 38 bpm was on 04/18/25 at 5:04 am. 3. There are rare premature supraventricular complexes and rare supraventricular couplets. No supraventricular tachycardia. 4. There are frequent premature ventricular complexes at burden of 21.5%, rare ventricular couplets, rare ventricular triplets, longest ventricular bigeminy was 22 minutes and 59 seconds, and longest ventricular trigeminy was 6 minutes and 27 seconds. There are 5 episodes of ventricular tachycardia with fastest at 156 bpm and longest lasting 5 beats. 5. No significant pauses greater than 3 seconds. 6. Patient reports 2 episodes of symptoms of skipped beats and chest pain which demonstrate sinus rhythm with both episodes in ventricular bigeminy.
== END 2025-04-15 12:52 | disposition home or self-care (01) ==
LOC: ANHCARD 12:55
PROVIDERS: PCP Family Medicine; Visit Provider Family Medicine
DX: R00.1 Bradycardia, unspecified (principal); I10 Essential (primary) hypertension; D64.9 Anemia, unspecified
CPT/HCPCS: 93242